=== PATIENT | male | born 1980 | race Hispanic/Latino ===

== ENCOUNTER 2020-09-03 02:18 | Emergency (ER) | payer SELFPAY ==
[2020-09-03] MEDS ORDERED: KETOROLAC 30MG VIAL (30MG/ML) ONE (03:01)
== END 2020-09-03 03:34 | disposition home or self-care (01) ==
LOC: EDH 02:18
DX: H60.551 Acute reactive otitis externa, right ear (principal); Z72.0 Tobacco use
CPT/HCPCS: 82948; 96372; 99283; J1885